=== PATIENT | male | born 1990 | race Caucasian/White ===

== ENCOUNTER 2020-08-05 20:03 | Inpatient (IN) | payer OTHER, SELFPAY ==
[~2020-08-05] VITALS: Ht 182.9 cm; Wt 73.0 kg
[2020-08-05 20:09] VITALS: BP 189/122
[2020-08-05] MEDS ORDERED: ONDANSETRON 4 MG/2 ML VIAL IVP ONE ×2 (20:30→22:50)
[2020-08-05] MEDS ORDERED: NACL 0.9% 2,000 ML IV ONE (20:30)
[2020-08-05 20:59] LABS: APPEARANCE,URINE CLEAR (CLEAR); BILIRUBIN,URINE 1+ (NEGATIVE); BLOOD, URINE 1+ (NEGATIVE); COLOR,URINE YELLOW (YELLOW); LEUKOCYTE ESTERASE ,URINE NEGATIVE (NEGATIVE); NITRITE, URINE NEGATIVE (NEGATIVE); PH,URINE 7.5 (5.0-9.0); UGLUCOSE 2+ (NEGATIVE)
[2020-08-05 20:59] LABS: BASOPHILS % (AUTO) 0.4 % (0.0-2.0); EOSINOPHILS # (AUTO) 0.1 K/uL (0-0.4); EOSINOPHILS % (AUTO) 0.6 % (0.0-4.0); HEMATOCRIT 45.5 % (36-52); HEMOGLOBIN 15.4 g/dL (12.0-18.0); LYMPHOCYTES # (AUTO) 1.5 K/uL (2.0-11.5); LYMPHOCYTES % (AUTO) 13.9 % (20.5-51.1); MEAN CORPUSCULAR HEMOGLOBIN 31 pg (27-31); MEAN CORPUSCULAR HGB CONC 34 g/dL (33-37); MEAN CORPUSCULAR VOLUME 92.3 fL (80-94); NEUTROPHILS % (AUTO) 76.1 % (42.2-75.2); PLATELET COUNT (AUTO) 175 K/uL (140-450); RED BLOOD CELL COUNT(AUTO) 4.93 MIL/uL (4.20-6.10); RED CELL DISTRIBUTION WIDTH 12.7 % (11.6-13.7); WHITE BLOOD COUNT (AUTO) 10.6 K/uL (4.8-10.8)
[2020-08-05 21:06] LABS: ACETONE, SERUM NEGATIVE (NEGATIVE)
[2020-08-05 21:07] LABS: ANION GAP 16.6 (8-16); CARBON DIOXIDE 26.4 mmol/L (21-32); CHLORIDE 100 mmol/L (98-107); CREATININE 1.8 mg/dL (0.6-1.3); GFR ARICAN-AMERICAN 58 mL/min (>90); GLUCOSE 234 mg/dL (74-106); SODIUM SERUM 139 mmol/L (136-145); UREA NITROGEN, BLOOD 21 mg/dL (7-18)
[2020-08-05 21:13] LABS: ALBUMIN 3.6 g/dL (3.4-5.0); ASPARTATE AMINOTRANSFERASE 17 U/L (15-37); LIPASE 34 U/L (73-393); TOTAL BILIRUBIN 0.9 mg/dL (0.0-1.0)
[2020-08-05 21:26] LABS: RBC,URINE 11-20 (MOD) /HPF (0-5); WBC,URINE 0-5 /HPF (0-5)
[2020-08-05] MEDS ORDERED: LABETALOL 100 MG/20 ML VIAL IVP ONE (22:00)
[2020-08-05] MEDS ORDERED: HYDROcodone/APAP 5/325 MG 1 TAB TAB PO ONE (22:50)
[2020-08-05] MEDS ORDERED: NACL 0.9% 1,000 ML IV ONE (23:05)
[2020-08-06] MEDS ORDERED: PANTOPRAZOLE 40 MG INJ VIAL IVP ONE ×2 (00:25→01:40)
[2020-08-06] MEDS ORDERED: METOCLOPRAMIDE 10 MG/2 ML INJ VIAL IVP ONE ×2 (00:25→01:40)
[2020-08-06] MEDS ORDERED: MORPHINE SULFATE 2 MG/ML SYR IVP ONE ×2 (00:25→01:40)
[2020-08-06] MEDS ORDERED: METO-486 PO (00:37)
[2020-08-06] MEDS ORDERED: AMLO10TA87 PO (00:37)
[2020-08-06] MEDS ORDERED: PANT40EC PO (00:37)
[2020-08-06] MEDS ORDERED: hydrALAZINE 20 MG/ML VIAL IVP ONE (00:50)
[2020-08-06] MEDS ORDERED: INSU10SU6 SUBQ (01:37)
[2020-08-06] MEDS ORDERED: PANTOPRAZOLE 40 MG INJ VIAL ONE (01:44)
[2020-08-06] MEDS ORDERED: METOCLOPRAMIDE 10 MG/2 ML INJ VIAL ONE (01:44)
[2020-08-06] MEDS ORDERED: MORPHINE SULFATE 2 MG/ML SYR ONE (01:44)
[2020-08-06] MEDS ORDERED: LORazepam 2 MG/ML VIAL IVP PRN (01:45)
[2020-08-06] MEDS ORDERED: DEXTROSE 50% 50 ML SYR IVP PRN (01:45)
[2020-08-06] MEDS: NACL 0.9% 1,000 ML IV SCH ×2 (01:45→12:28)
[2020-08-06] MEDS ORDERED: SLIDE SUBQ (01:58)
[2020-08-06] MEDS ORDERED: LISI-486 PO (01:58)
[2020-08-06] MEDS ORDERED: NOV7030 SUBQ (01:58)
[2020-08-06] MEDS ORDERED: PROCHLORPERAZINE 10 MG/2 ML VIAL IVP PRN (02:50)
[2020-08-06 03:10] VITALS: BP 161/108
[2020-08-06] MEDS: ONDANSETRON 4 MG/2 ML VIAL IVP PRN (03:37)
[2020-08-06 04:00] VITALS: BP 168/105
[2020-08-06] MEDS ORDERED: INSULIN LISPRO 100 UNITS/ML VIAL SUBQ SCH (05:40)
[2020-08-06] MEDS: hydrALAZINE 20 MG/ML VIAL IVP PRN (05:51)
[2020-08-06] MEDS: BLOOD GLUCOSE MONITORING 1 DEV DEV FS SCH ×4 (06:01→20:40)
[2020-08-06] MEDS: MORPHINE SULFATE 2 MG/ML SYR IVP PRN (06:02)
[2020-08-06 08:00] VITALS: BP 185/116
[2020-08-06] MEDS: PANTOPRAZOLE 40 MG INJ VIAL IVP SCH (08:51)
[2020-08-06] MEDS: ENOXAPARIN 40 MG/0.4 ML SYR SUBQ SCH (08:52)
[2020-08-06] MEDS: CLONIDINE HYDROCHLORIDE 0.1 MG TAB PO PRN (09:43)
[2020-08-06 12:00] VITALS: BP 133/71
[2020-08-06] MEDS: INSULIN LISPRO SLIDING SCALE 100 UNITS/ML VIAL SUBQ PRN ×3 (12:11→21:17)
[2020-08-06 16:00] VITALS: BP 143/82
[2020-08-06 20:00] VITALS: BP 149/82
[2020-08-07] VITALS: BP 156/99
[2020-08-07] MEDS: NACL 0.9% 1,000 ML IV SCH ×3 (00:04→17:45)
[2020-08-07 04:00] VITALS: BP 186/111
[2020-08-07] MEDS: hydrALAZINE 20 MG/ML VIAL IVP PRN ×2 (05:06→16:49)
[2020-08-07] MEDS: INSULIN LISPRO SLIDING SCALE 100 UNITS/ML VIAL SUBQ PRN ×3 (06:00→18:18)
[2020-08-07] MEDS: BLOOD GLUCOSE MONITORING 1 DEV DEV FS SCH ×4 (06:00→20:27)
[2020-08-07] MEDS: CLONIDINE HYDROCHLORIDE 0.1 MG TAB PO PRN ×2 (06:38→20:18)
[2020-08-07 06:55] LABS: BASOPHILS % (AUTO) 0.2 % (0.0-2.0); EOSINOPHILS % (AUTO) 0.3 % (0.0-4.0); HEMATOCRIT 39.9 % (36-52); HEMOGLOBIN 13.2 g/dL (12.0-18.0); LYMPHOCYTES # (AUTO) 1.2 K/uL (2.0-11.5); LYMPHOCYTES % (AUTO) 7.7 % (20.5-51.1); MEAN CORPUSCULAR HEMOGLOBIN 31 pg (27-31); MEAN CORPUSCULAR HGB CONC 33 g/dL (33-37); MEAN CORPUSCULAR VOLUME 93.9 fL (80-94); MONOCYTES # (AUTO) 0.8 K/uL (0.8-1.0); MONOCYTES % (AUTO) 5.5 % (1.7-9.3); NEUTROPHILS # (AUTO) 12.9 K/uL (1.8-7.7); NEUTROPHILS % (AUTO) 86.3 % (42.2-75.2); PLATELET COUNT (AUTO) 151 K/uL (140-450); RED BLOOD CELL COUNT(AUTO) 4.25 MIL/uL (4.20-6.10)
[2020-08-07 07:40] LABS: ALBUMIN 2.9 g/dL (3.4-5.0); ANION GAP 23.5 (8-16); CARBON DIOXIDE 16.9 mmol/L (21-32); CREATININE 1.9 mg/dL (0.6-1.3); MAGNESIUM 1.5 mg/dL (1.8-2.4); POTASSIUM 4.4 mmol/L (3.5-5.1)
[2020-08-07 08:00] VITALS: BP 148/87
[2020-08-07] MEDS: PANTOPRAZOLE 40 MG INJ VIAL IVP SCH (08:09)
[2020-08-07] MEDS: ACETAMINOPHEN 325 MG TAB PO PRN ×2 (08:09→19:59)
[2020-08-07] MEDS: ENOXAPARIN 40 MG/0.4 ML SYR SUBQ SCH (08:16)
[2020-08-07 11:20] VITALS: BP 144/92
[2020-08-07] MEDS: ONDANSETRON 4 MG/2 ML VIAL IVP PRN (11:43)
[2020-08-07] MEDS: MAG SULF 2000 MG/WATER PREMIX 50 ML IV SCH ×2 (13:20→15:01)
[2020-08-07 16:00] VITALS: BP 139/91
[2020-08-07] MEDS: METOCLOPRAMIDE 10 MG/2 ML INJ VIAL IVP PRN (16:31)
[2020-08-07] MEDS: MECLIZINE 25 MG TAB PO PRN (18:11)
[2020-08-07 20:00] VITALS: BP 182/106
[2020-08-07] MEDS: INSULIN NPH HUM/REG INSULIN HM 100 UNIT/ML 10 ML VIAL SUBQ SCH (20:27)
[2020-08-07] MEDS: HYDROcodone/APAP 5/325 MG 1 TAB TAB PO PRN (23:40)
[2020-08-08] VITALS (7 sets, daily range): BP systolic 139–202; BP diastolic 73–116
[2020-08-08] MEDS: METOCLOPRAMIDE 10 MG/2 ML INJ VIAL IVP PRN (03:12)
[2020-08-08] MEDS: hydrALAZINE 20 MG/ML VIAL IVP PRN ×3 (04:20→22:23)
[2020-08-08] MEDS: NACL 0.9% 1,000 ML IV SCH ×4 (04:22→23:45)
[2020-08-08] MEDS: BLOOD GLUCOSE MONITORING 1 DEV DEV FS SCH ×4 (06:47→21:59)
[2020-08-08] MEDS: INSULIN LISPRO SLIDING SCALE 100 UNITS/ML VIAL SUBQ PRN ×3 (06:48→19:16)
[2020-08-08] MEDS: PANTOPRAZOLE 40 MG INJ VIAL IVP SCH (09:30)
[2020-08-08] MEDS: ENOXAPARIN 40 MG/0.4 ML SYR SUBQ SCH (09:31)
[2020-08-08] MEDS: INSULIN NPH HUM/REG INSULIN HM 100 UNIT/ML 10 ML VIAL SUBQ SCH ×2 (09:31→21:52)
[2020-08-08 16:39] LABS: BASOPHILS # (AUTO) 0.1 K/uL (0.00-0.22); BASOPHILS % (AUTO) 0.4 % (0.0-2.0); EOSINOPHILS % (AUTO) 0.1 % (0.0-4.0); HEMATOCRIT 38.8 % (36-52); HEMOGLOBIN 12.8 g/dL (12.0-18.0); LYMPHOCYTES # (AUTO) 1.3 K/uL (2.0-11.5); LYMPHOCYTES % (AUTO) 8.4 % (20.5-51.1); MEAN CORPUSCULAR HEMOGLOBIN 31 pg (27-31); MEAN CORPUSCULAR HGB CONC 33 g/dL (33-37); MONOCYTES # (AUTO) 1.5 K/uL (0.8-1.0); MONOCYTES % (AUTO) 9.8 % (1.7-9.3); NEUTROPHILS # (AUTO) 12.8 K/uL (1.8-7.7); NEUTROPHILS % (AUTO) 81.3 % (42.2-75.2); PLATELET COUNT (AUTO) 167 K/uL (140-450); RED BLOOD CELL COUNT(AUTO) 4.13 MIL/uL (4.20-6.10); RED CELL DISTRIBUTION WIDTH 12.8 % (11.6-13.7); WHITE BLOOD COUNT (AUTO) 15.8 K/uL (4.8-10.8)
[2020-08-08 17:02] LABS: ALBUMIN 2.8 g/dL (3.4-5.0); ANION GAP 20.7 (8-16); CARBON DIOXIDE 17.2 mmol/L (21-32); CREATININE 2.2 mg/dL (0.6-1.3); POTASSIUM 3.9 mmol/L (3.5-5.1); TOTAL BILIRUBIN 0.5 mg/dL (0.0-1.0)
[2020-08-08] MEDS: HYDROcodone/APAP 5/325 MG 1 TAB TAB PO PRN (22:01)
[2020-08-09] MEDS ORDERED: AZITHROMYCIN 250 MG in DEXTROSE 5% 250 ML IV SCH ×2
[2020-08-09] MEDS: ERYTHROMYCIN 250 MG in NACL 0.9% 100 ML IV SCH ×3 (02:36→12:29)
[2020-08-09] MEDS: NACL 0.9% 1,000 ML IV SCH ×3 (02:37→09:45)
[2020-08-09 04:00] VITALS: BP 185/121
[2020-08-09] MEDS: METOCLOPRAMIDE 10 MG/2 ML INJ VIAL IVP PRN ×2 (04:27→09:38)
[2020-08-09] MEDS: hydrALAZINE 20 MG/ML VIAL IVP PRN (04:28)
[2020-08-09 05:26] LABS: BARBITURATE, URINE NEGATIVE ng/ml (NEG <=200); BENZODIAZEPINE, URINE NEGATIVE ng/mL (NEG <=200); CANNABINOID, URINE POSITIVE ng/mL (NEG <=50); COCAINE, URINE NEGATIVE ng/mL (NEG <=300); OPIATE, URINE POSITIVE ng/mL (NEG <=2000); PHENCYCLIDINE SCREEN,URINE NEGATIVE ng/mL (NEG <=25)
[2020-08-09] MEDS: BLOOD GLUCOSE MONITORING 1 DEV DEV FS SCH ×2 (07:00→12:28)
[2020-08-09 08:00] VITALS: BP 161/94
[2020-08-09] MEDS: INSULIN NPH HUM/REG INSULIN HM 100 UNIT/ML 10 ML VIAL SUBQ SCH (09:00)
[2020-08-09] MEDS: ENOXAPARIN 40 MG/0.4 ML SYR SUBQ SCH (09:00)
[2020-08-09] MEDS: PANTOPRAZOLE 40 MG INJ VIAL IVP SCH (09:07)
[2020-08-09] MEDS: CLONIDINE HYDROCHLORIDE 0.1 MG TAB PO PRN (09:09)
[2020-08-09] MEDS: MECLIZINE 25 MG TAB PO PRN (09:09)
[2020-08-09] MEDS: MORPHINE SULFATE 2 MG/ML SYR IVP PRN (09:38)
[2020-08-09] MEDS ORDERED: MIDAZOLAM 5 MG/5 ML VIAL ONE (11:02)
[2020-08-09] MEDS ORDERED: fentaNYL citrate 0.05 MG/ML VIAL ONE (11:02)
[2020-08-09] MEDS ORDERED: diphenhydrAMINE 50 MG/ML VIAL ONE (11:02)
[2020-08-09 12:00] VITALS: BP 152/90
[2020-08-09] MEDS: INSULIN LISPRO SLIDING SCALE 100 UNITS/ML VIAL SUBQ PRN (12:29)
[2020-08-09] MEDS ORDERED: MIDAZOLAM 2 MG/2 ML VIAL IVP ONE (12:50)
[2020-08-09] MEDS ORDERED: fentaNYL citrate 0.05 MG/ML VIAL IVP ONE (12:50)
[2020-08-09 13:53] LABS: BASOPHILS % (AUTO) 0.1 % (0.0-2.0); EOSINOPHILS % (AUTO) 0.1 % (0.0-4.0); HEMATOCRIT 38.4 % (36-52); HEMOGLOBIN 12.5 g/dL (12.0-18.0); LYMPHOCYTES # (AUTO) 0.6 K/uL (2.0-11.5); LYMPHOCYTES % (AUTO) 5.5 % (20.5-51.1); MEAN CORPUSCULAR HEMOGLOBIN 31 pg (27-31); MEAN CORPUSCULAR HGB CONC 33 g/dL (33-37); MONOCYTES # (AUTO) 0.5 K/uL (0.8-1.0); MONOCYTES % (AUTO) 4.4 % (1.7-9.3); NEUTROPHILS % (AUTO) 89.9 % (42.2-75.2); PLATELET COUNT (AUTO) 158 K/uL (140-450); RED BLOOD CELL COUNT(AUTO) 4.04 MIL/uL (4.20-6.10); RED CELL DISTRIBUTION WIDTH 12.9 % (11.6-13.7); WHITE BLOOD COUNT (AUTO) 11.1 K/uL (4.8-10.8)
[2020-08-09 14:12] LABS: ANION GAP 23.7 (8-16); CARBON DIOXIDE 14.4 mmol/L (21-32); CREATININE 2.1 mg/dL (0.6-1.3); POTASSIUM 4.1 mmol/L (3.5-5.1)
[2020-08-09] MEDS ORDERED: ONDA4TAB PO (14:39)
[2020-08-09] MEDS ORDERED: AMLO5TAB PO (14:42)
[2020-08-09] MEDS ORDERED: OMEP40EC24 PO (15:15)
== END 2020-08-09 16:00 | disposition home or self-care (01) | DRG 241 ==
LOC: MED 20:03 → MMU 08-06 01:41 → MTU 08-06 02:51
PROVIDERS: ADMIT Hospitalist; ATTEND Hospitalist
PROC: 0DB68ZX Excision of Stomach, Via Natural or Artificial Opening Endoscopic, Diagnostic (ICD-10-PCS; principal; 2020-08-09 12:00)
DX: K29.70 Gastritis, unspecified, without bleeding (principal); N17.9 Acute kidney failure, unspecified; E72.51 Non-ketotic hyperglycinemia; E10.21 Type 1 diabetes mellitus with diabetic nephropathy; K31.84 Gastroparesis; E10.43 Type 1 diabetes mellitus with diabetic autonomic (poly)neuropathy; F12.90 Cannabis use, unspecified, uncomplicated; E86.0 Dehydration; Z20.822 Contact with and (suspected) exposure to COVID-19; I10 Essential (primary) hypertension; K21.00 Gastro-esophageal reflux disease with esophagitis, without bleeding; N20.0 Calculus of kidney; Z83.3 Family history of diabetes mellitus
CPT/HCPCS: 36415; 71045; 80048; 80053; 80305; 81001; 82009; 82803; 82948; 83690; 83735; 85025; 86677; 87081; 93005; 96361; 96374; 96375; 96376; 99285; C9113; J0360; J0456; J0780; J1200; J1364; J1650; J1815; J2250; J2270; J2405; J2765; J3010; J3475; J3490; J7030; J7060; J8597

== ENCOUNTER 2020-12-13 11:42 | Emergency (ER) | payer OTHER, SELFPAY ==
[~2020-12-13] VITALS: Ht 185.4 cm; Wt 73.9 kg
[~2020-12-13 11:42] MED LIST: AMLO5TAB PO; LISI-486 PO; NOV7030 SUBQ; OMEP40EC24 PO; ONDA4TAB PO; SLIDE SUBQ
[2020-12-13 11:48] VITALS: BP 200/133
--- NOTE | 2020-12-13 12:03 | NUR ---
Patient ambulated to bed 05 with steady/even gait.
--- NOTE | 2020-12-13 12:04 | NUR ---
Lab at bedside
--- NOTE | 2020-12-13 12:07 | NUR ---
RAD at bedside
[2020-12-13 12:14] LABS: BASOPHILS % (AUTO) 0.2 % (0.0-2.0); EOSINOPHILS # (AUTO) 0.1 K/uL (0-0.4); EOSINOPHILS % (AUTO) 0.8 % (0.0-4.0); HEMATOCRIT 45.9 % (36-52); HEMOGLOBIN 15.1 g/dL (12.0-18.0); LYMPHOCYTES # (AUTO) 1.1 K/uL (2.0-11.5); LYMPHOCYTES % (AUTO) 13.7 % (20.5-51.1); MEAN CORPUSCULAR HEMOGLOBIN 31 pg (27-31); MEAN CORPUSCULAR HGB CONC 33 g/dL (33-37); MEAN CORPUSCULAR VOLUME 95.9 fL (80-94); MONOCYTES # (AUTO) 0.4 K/uL (0.8-1.0); MONOCYTES % (AUTO) 5.7 % (1.7-9.3); NEUTROPHILS # (AUTO) 6.2 K/uL (1.8-7.7); NEUTROPHILS % (AUTO) 79.6 % (42.2-75.2); PLATELET COUNT (AUTO) 203 K/uL (140-450); RED BLOOD CELL COUNT(AUTO) 4.79 MIL/uL (4.20-6.10); RED CELL DISTRIBUTION WIDTH 13.1 % (11.6-13.7); WHITE BLOOD COUNT (AUTO) 7.8 K/uL (4.8-10.8)
--- NOTE | 2020-12-13 12:18 | NUR ---
DR BYRD AT BEDSIDE EVALUATING PT
--- NOTE | 2020-12-13 12:25 | NUR ---
29 y/o M BIB self from home c/o sinus headache and generalized weakness x 5 days. Patient reports sore throat on and symptoms progressively worsen. Pt states one episode of epitaxis and worsening symptoms of 5/10 muscle cramps, body aches, sinus headache 10/10 and fatigue. Patient states vaccinated 1st dose; denies any sickness at home. Patient also states chest pain R side > L side, 4/10, pressure/constant non-radiating that is intermittent throughout the day/evening but constant in the mornings. Patient reports nasal spray @ 0900 and OTC flu medication at 1000 with temporary relief to symptoms. Patient denies fever, chills, nausea, vomitnig, diarrhea. Reports constipation x 3 day with poor appetite. Pt placed into a gown and air sampling and monitoring showing HR 106, BP 190/48. Pt states compliance with diabetes medications, however, blood sugar remains uncontrolled. States complaint with HTN; last dose this morning. Bed locked in lowest position, side rails x 1, call light in reach. ERMD made aware of patient condition. PMH: DM1, HTN Meds: norvasc, lisinopril, insulin 70/30 NKA Sx: double hernia repair, R ulnar repair
[2020-12-13 12:31] LABS: BARBITURATE, URINE NEGATIVE ng/ml (NEG <=200); BENZODIAZEPINE, URINE NEGATIVE ng/mL (NEG <=200); CANNABINOID, URINE POSITIVE ng/mL (NEG <=50); COCAINE, URINE NEGATIVE ng/mL (NEG <=300); OPIATE, URINE POSITIVE ng/mL (NEG <=2000); PHENCYCLIDINE SCREEN,URINE NEGATIVE ng/mL (NEG <=25)
[2020-12-13] MEDS ORDERED: LORazepam 2 MG/ML VIAL IVP ONE (12:45)
[2020-12-13 12:52] LABS: ALBUMIN 3.1 g/dL (3.4-5.0); ANION GAP 16.6 (8-16); CARBON DIOXIDE 25.2 mmol/L (21-32); CREATININE 1.9 mg/dL (0.6-1.3); FREE T4 (FREE THYROXINE) 1.01 ng/dL (0.76-1.46); POTASSIUM 3.8 mmol/L (3.5-5.1); THYROID STIMULATING HORMONE 0.37 uIU/mL (0.34-3.74); TOTAL BILIRUBIN 0.4 mg/dL (0.0-1.0)
[2020-12-13 14:12] LABS: FREE T4 (FREE THYROXINE) 1.03 ng/dL (0.76-1.46); THYROID STIMULATING HORMONE 0.4 uIU/mL (0.34-3.74)
[2020-12-13] MEDS ORDERED: NACL 0.9% 1,000 ML IV ONE (14:35)
[2020-12-13 14:54] VITALS: BP 166/104
--- NOTE | 2020-12-13 15:41 | NUR ---
Patient discharged with v/s stable. Written and verbal after care instructions given and explained. Patient verbalized understanding. Ambulatory with steady gait. All questions addressed prior to discharge. Advised to follow up with PMD.
== END 2020-12-13 15:41 | disposition home or self-care (01) ==
LOC: MED 11:42
DX: E10.65 Type 1 diabetes mellitus with hyperglycemia (principal); I10 Essential (primary) hypertension; F12.90 Cannabis use, unspecified, uncomplicated; Z98.890 Other specified postprocedural states; Z79.4 Long term (current) use of insulin; Z79.899 Other long term (current) drug therapy
CPT/HCPCS: 36415; 71045; 80053; 80305; 83690; 84439; 84443; 84484; 85025; 93005; 96361; 96374; 99285; J2060; Q0092; J7030

== ENCOUNTER 2021-01-21 22:53 | Emergency (ER) | payer OTHER, SELFPAY ==
[~2021-01-21] VITALS: Ht 185.4 cm; Wt 72.6 kg
[2021-01-21 22:54] VITALS: BP 159/114
--- NOTE | 2021-01-21 22:54 | NUR ---
TO BED AMBULATORY
--- NOTE | 2021-01-21 23:10 | NUR ---
RECEIVED IN BED 11 WITH C/O ABDOMINAL PAIN X 2 DAYS. PT STES "I HAD AN X-RAY A WEEK AGO AND IT SAID I HAD AN INFLAMED PANCREAS". PT STATES RECENT H/O DKA BUT SUGAR IS NOW CONTROLLED. ABDOMINAL PAIN HAS BEEN X 2 DAYS AFTER EATING A LUNCH THAT LEFT HIM NOT FEELING WELL. IS AWAKE AND ALERT WITH SKIN WARM AND DRY.
--- NOTE | 2021-01-21 23:17 | NUR ---
DR. BYRD AT BEDSIDE FOR EXAM
[2021-01-21] MEDS ORDERED: NACL 0.9% 1,000 ML IV ONE (23:25)
[2021-01-21] MEDS ORDERED: LORazepam 2 MG/ML VIAL IVP ONE (23:25)
[2021-01-21 23:40] LABS: BASOPHILS % (AUTO) 0.3 % (0.0-2.0); EOSINOPHILS # (AUTO) 0.2 K/uL (0-0.4); EOSINOPHILS % (AUTO) 2.4 % (0.0-4.0); HEMATOCRIT 38.1 % (36-52); HEMOGLOBIN 12.5 g/dL (12.0-18.0); LYMPHOCYTES # (AUTO) 1.5 K/uL (2.0-11.5); LYMPHOCYTES % (AUTO) 23.3 % (20.5-51.1); MEAN CORPUSCULAR HEMOGLOBIN 32 pg (27-31); MEAN CORPUSCULAR HGB CONC 33 g/dL (33-37); MEAN CORPUSCULAR VOLUME 96.1 fL (80-94); MONOCYTES # (AUTO) 0.6 K/uL (0.8-1.0); MONOCYTES % (AUTO) 9.4 % (1.7-9.3); NEUTROPHILS # (AUTO) 4.2 K/uL (1.8-7.7); NEUTROPHILS % (AUTO) 64.6 % (42.2-75.2); PLATELET COUNT (AUTO) 185 K/uL (140-450); RED BLOOD CELL COUNT(AUTO) 3.96 MIL/uL (4.20-6.10); RED CELL DISTRIBUTION WIDTH 13.6 % (11.6-13.7); WHITE BLOOD COUNT (AUTO) 6.5 K/uL (4.8-10.8)
[2021-01-21 23:41] LABS: APPEARANCE,URINE CLEAR (CLEAR); BILIRUBIN,URINE NEGATIVE (NEGATIVE); BLOOD, URINE TRACE-I (NEGATIVE); COLOR,URINE YELLOW (YELLOW); LEUKOCYTE ESTERASE ,URINE NEGATIVE (NEGATIVE); NITRITE, URINE NEGATIVE (NEGATIVE); UGLUCOSE 3+ (NEGATIVE)
[2021-01-21 23:53] LABS: BARBITURATE, URINE NEGATIVE ng/ml (NEG <=200); BENZODIAZEPINE, URINE NEGATIVE ng/mL (NEG <=200); CANNABINOID, URINE POSITIVE ng/mL (NEG <=50); COCAINE, URINE NEGATIVE ng/mL (NEG <=300); OPIATE, URINE NEGATIVE ng/mL (NEG <=2000); PHENCYCLIDINE SCREEN,URINE NEGATIVE ng/mL (NEG <=25)
[2021-01-21 23:55] LABS: ALBUMIN 3.1 g/dL (3.4-5.0); CARBON DIOXIDE 23.2 mmol/L (21-32); CREATININE 2.1 mg/dL (0.6-1.3); POTASSIUM 5.2 mmol/L (3.5-5.1); TOTAL BILIRUBIN 0.2 mg/dL (0.0-1.0)
[2021-01-22 00:02] LABS: RBC,URINE 0-5 /HPF (0-5); WBC,URINE 0-5 /HPF (0-5)
[2021-01-22] MEDS ORDERED: INSULIN REGULAR, HUMAN 100 UNIT/ML VIAL IVP ONE (00:45)
[2021-01-22] MEDS ORDERED: NACL 0.9% 1,000 ML IV ONE (00:45)
--- NOTE | 2021-01-22 01:12 | NUR ---
AWAKE, AMBULATED TO BR. BACK TO BED AND MADE COMFORTABLE
--- NOTE | 2021-01-22 02:16 | NUR ---
REPEAT ACCUCHECK = 133
[2021-01-22 02:58] VITALS: BP 128/89
== END 2021-01-22 02:59 | disposition home or self-care (01) ==
LOC: MED 22:53
DX: E10.65 Type 1 diabetes mellitus with hyperglycemia (principal); R10.10 Upper abdominal pain, unspecified; I10 Essential (primary) hypertension; F12.90 Cannabis use, unspecified, uncomplicated; Z79.4 Long term (current) use of insulin; Z79.899 Other long term (current) drug therapy; Z98.890 Other specified postprocedural states
CPT/HCPCS: 36415; 80053; 80305; 81001; 83690; 85025; 96361; 96374; 96375; 99284; J1815; J2060; J7030

== ENCOUNTER 2021-03-22 12:19 | Emergency (ER) | payer OTHER ==
[~2021-03-22] VITALS: Ht 185.4 cm; Wt 73.7 kg
[2021-03-22 12:52] VITALS: BP 214/143
--- NOTE | 2021-03-22 13:03 | NUR ---
PT AMB TO 10B
[2021-03-22] MEDS ORDERED: NACL 0.9% 1,000 ML IV SCH (13:10)
[2021-03-22] MEDS ORDERED: METOCLOPRAMIDE 10 MG/2 ML INJ VIAL IVP ONE (13:15)
[2021-03-22] MEDS ORDERED: LACTATED RINGERS 1,000 ML IV ONE (13:15)
--- NOTE | 2021-03-22 13:31 | NUR ---
STATION USHER AT PT BEDSIDE.
[2021-03-22 13:59] LABS: BASOPHILS % (AUTO) 0.5 % (0.0-2.0); EOSINOPHILS % (AUTO) 0.1 % (0.0-4.0); HEMATOCRIT 44.9 % (36-52); HEMOGLOBIN 15.2 g/dL (12.0-18.0); LYMPHOCYTES # (AUTO) 0.8 K/uL (2.0-11.5); LYMPHOCYTES % (AUTO) 7.9 % (20.5-51.1); MEAN CORPUSCULAR HEMOGLOBIN 31 pg (27-31); MEAN CORPUSCULAR HGB CONC 34 g/dL (33-37); MEAN CORPUSCULAR VOLUME 91.4 fL (80-94); MONOCYTES # (AUTO) 0.3 K/uL (0.8-1.0); MONOCYTES % (AUTO) 2.9 % (1.7-9.3); NEUTROPHILS # (AUTO) 8.7 K/uL (1.8-7.7); NEUTROPHILS % (AUTO) 88.6 % (42.2-75.2); PLATELET COUNT (AUTO) 183 K/uL (140-450); RED BLOOD CELL COUNT(AUTO) 4.92 MIL/uL (4.20-6.10); RED CELL DISTRIBUTION WIDTH 12.6 % (11.6-13.7); WHITE BLOOD COUNT (AUTO) 9.8 K/uL (4.8-10.8)
[2021-03-22 15:08] LABS: ALBUMIN 3.2 g/dL (3.4-5.0); ANION GAP 13.3 (8-16); CARBON DIOXIDE 29.9 mmol/L (21-32); POTASSIUM 4.2 mmol/L (3.5-5.1); TOTAL BILIRUBIN 0.5 mg/dL (0.0-1.0)
[2021-03-22] MEDS ORDERED: INSU100V6 SQ (16:59)
[2021-03-22] MEDS ORDERED: ONDA-188 SL (16:59)
[2021-03-22] MEDS ORDERED: METO-485 PO (16:59)
[2021-03-22] MEDS ORDERED: INSU100S22 SUBQ (16:59)
[2021-03-22 17:09] LABS: APPEARANCE,URINE CLEAR (CLEAR)
[2021-03-22 17:10] LABS: COLOR,URINE YELLOW (YELLOW)
[2021-03-22 17:11] LABS: BILIRUBIN,URINE NEGATIVE (NEGATIVE); BLOOD, URINE 2+ (NEGATIVE); UGLUCOSE 4+ (NEGATIVE)
[2021-03-22 17:12] LABS: LEUKOCYTE ESTERASE ,URINE NEGATIVE (NEGATIVE); NITRITE, URINE NEGATIVE (NEGATIVE)
[2021-03-22 17:14] LABS: WBC,URINE 0-5 /HPF (0-5)
[2021-03-22 17:36] VITALS: BP 156/97
--- NOTE | 2021-03-22 19:23 | NUR ---
Patient discharged with v/s stable. Written and verbal after care instructions given and explained. Patient alert, oriented and verbalized understanding of instructions. Ambulatory with steady gait. All questions addressed prior to discharge. ID band removed. Patient advised to follow up with PMD. Rx of INSULIN LISPRO, LANTUS, REGLAN, AND ZOFRAN given. Patient educated on indication of medication including possible reaction and side effects. Opportunity to ask questions provided and answered.
--- NOTE | 2021-03-30 14:53 | NUR ---
LATE ENTRY- NORMAL SALINE IV DISCONTINUED AT 1922.
== END 2021-03-22 17:39 | disposition home or self-care (01) ==
LOC: MED 12:19
DX: E11.65 Type 2 diabetes mellitus with hyperglycemia (principal); F12.90 Cannabis use, unspecified, uncomplicated; I10 Essential (primary) hypertension; Z98.890 Other specified postprocedural states; Z79.4 Long term (current) use of insulin
CPT/HCPCS: 36415; 71045; 80053; 81001; 82009; 82803; 82948; 83690; 85025; 93005; 96361; 96374; 99285; J2765; J7030; J7120